=== PATIENT | female | born 1955 | race Caucasian/White ===

== ENCOUNTER 2017-09-10 12:38 | Inpatient (IN) | payer BC ==
[2017-09-10] VITALS (10 sets, daily range): BP systolic 119–204; BP diastolic 64–114
[~2017-09-10] VITALS: Ht 165.1 cm; Wt 99.0 kg
[2017-09-10 13:02] LABS: BASOPHIL (%) 0.8 % (0-1); BASOPHIL COUNT 0.1 K/uL (0-0.1); EOSINOPHIL (%) 0.8 % (0-5); EOSINOPHIL COUNT 0.1 K/uL (0-0.3); HEMATOCRIT 36.2 % (36.0-46.0); HEMOGLOBIN 12.3 G/DL (11.9-15.5); IMMATURE GRANULOCYTE (%) 1.1 % (0.0-0.7); LYMPHOCYTE (%) 16.1 % (15-42); LYMPHOCYTE COUNT 1.6 K/uL (1.0-2.8); MCH 31.9 PG (29.0-34.0); MCV 93.8 FL (83-99); MONOCYTE (%) 7.8 % (3-12); MONOCYTE COUNT 0.8 K/uL (0-0.8); NEUTROPHIL (%) 73.4 % (45-76); NEUTROPHIL COUNT 7.3 K/uL (1.8-6.4); PLATELET COUNT 225 K/uL (156-360); RBC DIS.WIDTH-CV 13.5 % (11.8-14.6); RBC DIS.WIDTH-SD 45.8 % (39-53); RED BLOOD COUNT 3.86 M/uL (3.80-5.20)
[2017-09-10 13:06] LABS: AMYLASE 50 IU/L (1-118); CHLORIDE 107 mEq/L (99-109); POTASSIUM 3.5 mEq/L (3.7-5.4); SODIUM 142 mEq/L (136-147)
[2017-09-10 13:08] LABS: GLUCOSE 118 mg/dL (70-99)
[2017-09-10 13:11] LABS: SERUM ETHYL ALCOHOL < 10 mg/dL
[2017-09-10 13:12] LABS: CREATININE 1.7 mg/dL (0.6-1.3)
[2017-09-10 13:13] LABS: UREA NITROGEN (BUN) 36 mg/dL (9-23)
[2017-09-10 13:15] LABS: LIPASE 27 U/L (1.0-51.0)
[2017-09-10 13:20] LABS: GFR ESTIMATE (CALCULATED) 33 mL/min/
[2017-09-10] MEDS ORDERED: NORVASC5 MG PO (14:53)
[2017-09-10] MEDS ORDERED: LO-DOSE ASPIRIN81 M1 PO (14:53)
[2017-09-10] MEDS ORDERED: HYZAAR 100-21 TABLET PO (14:53)
[2017-09-10] MEDS ORDERED: GLUCOPHAGE1000 MG PO (14:54)
[2017-09-10] MEDS ORDERED: LIPITOR20 MG PO (14:55)
[2017-09-10] MEDS ORDERED: FISH OIL 1,0001 EAC7 PO (14:56)
[2017-09-10] MEDS ORDERED: GINKGO BILOBA40 M1 PO (14:57)
[2017-09-10] MEDS ORDERED: MULTIVITAMIN1 EAC2 PO (14:58)
[2017-09-10] MEDS ORDERED: GLUCOSAMINE CH1 EAC2 PO (14:59)
[2017-09-10 15:33] LABS: APPEARANCE CLEAR ((CLEAR)); BILIRUBIN NEGATIVE; BLOOD NEGATIVE; COLOR STRAW ((YELLOW)); GLUCOSE (STRIP) NEGATIVE; KETONES NEGATIVE; LEUKOCYTES NEGATIVE; NITRITE NEGATIVE; PROTEIN (STRIP) NEGATIVE; SPECIFIC GRAVITY 1.029 (1.000-1.030); UCUL ADDED? NO; UROBILINOGEN 0.2 MG/DL (0.2-1.0)
[2017-09-10 15:42] LABS: AMPHETAMINE NEGATIVE (500 ng/mL); BARBITURATES NEGATIVE (200 ng/mL); BENZODIAZEPINES NEGATIVE (150 ng/mL); BUPRENORPHINE NEGATIVE (10 ng/mL); COCAINE NEGATIVE (150 ng/mL); METHADONE NEGATIVE (200 ng/mL); METHAMPHETAMINE NEGATIVE (500 ng/mL); OPIATES (MORPHINE) NEGATIVE (100 ng/mL); OXYCODONE NEGATIVE (100 ng/mL); PHENCYCLIDINE NEGATIVE (25 ng/mL); PROPOXYPHENE NEGATIVE (300 ng/mL); THC CANNABINOIDS NEGATIVE (50 ng/mL); TRICYCLIC ANTIDEPRESSANTS NEGATIVE (300 ng/mL)
[2017-09-11] VITALS (18 sets, daily range): BP systolic 117–156; BP diastolic 46–93
[2017-09-11 06:13] LABS: HEMATOCRIT 34.5 % (36.0-46.0); HEMOGLOBIN 11.2 G/DL (11.9-15.5); MCH 31.5 PG (29.0-34.0); MCHC 32.5 G/DL (30.0-36.0); MCV 96.9 FL (83-99); PLATELET COUNT 182 K/uL (156-360); RBC DIS.WIDTH-CV 13.6 % (11.8-14.6); RBC DIS.WIDTH-SD 48.8 % (39-53); RED BLOOD COUNT 3.56 M/uL (3.80-5.20); WHITE BLOOD COUNT 10.4 K/uL (4.1-10.2)
[2017-09-11 06:42] LABS: ALBUMIN 3.9 G/DL (3.2-4.8); ALKALINE PHOSPHATASE 99 IU/L (3-129); ALT (GPT) 80 IU/L (3-49); AST (GOT) 74 IU/L (2-34); CHLORIDE 104 MEQ/L (99-109); CREATININE 1.2 MG/DL (0.6-1.3); GFR ESTIMATE (CALCULATED) 49 mL/min/; GLUCOSE 144 mg/dL (70-99); POTASSIUM 3.6 MEQ/L (3.7-5.4); SODIUM 139 MEQ/L (136-147); TOTAL BILIRUBIN 1.3 MG/DL (0.0-1.0); TOTAL PROTEIN 5.8 G/DL (6.4-8.3); UREA NITROGEN (BUN) 26 mg/dL (9-23)
[2017-09-12] VITALS (14 sets, daily range): BP systolic 141–173; BP diastolic 82–103
[2017-09-12 07:59] LABS: BASOPHIL (%) 0.5 % (0-1); BASOPHIL COUNT 0.1 K/uL (0-0.1); EOSINOPHIL (%) 2.7 % (0-5); EOSINOPHIL COUNT 0.3 K/uL (0-0.3); HEMATOCRIT 33.1 % (36.0-46.0); HEMOGLOBIN 11.1 G/DL (11.9-15.5); IMMATURE GRANULOCYTE (%) 0.3 % (0.0-0.7); LYMPHOCYTE (%) 9.6 % (15-42); LYMPHOCYTE COUNT 1.1 K/uL (1.0-2.8); MCH 32.3 PG (29.0-34.0); MCHC 33.5 G/DL (30.0-36.0); MCV 96.2 FL (83-99); MONOCYTE (%) 9.2 % (3-12); NEUTROPHIL (%) 77.7 % (45-76); NEUTROPHIL COUNT 8.5 K/uL (1.8-6.4); PLATELET COUNT 170 K/uL (156-360); RBC DIS.WIDTH-CV 13.2 % (11.8-14.6); RBC DIS.WIDTH-SD 46.5 % (39-53); RED BLOOD COUNT 3.44 M/uL (3.80-5.20); WHITE BLOOD COUNT 10.9 K/uL (4.1-10.2)
[2017-09-12 08:22] LABS: CHLORIDE 100 MEQ/L (99-109); CREATININE 0.9 MG/DL (0.6-1.3); GFR ESTIMATE (CALCULATED) > 59 mL/min/; GLUCOSE 141 mg/dL (70-99); POTASSIUM 3.8 MEQ/L (3.7-5.4); SODIUM 136 MEQ/L (136-147); UREA NITROGEN (BUN) 17 mg/dL (9-23)
[2017-09-13 04:31] VITALS: BP 162/84
[2017-09-13 04:42] LABS: BASOPHIL (%) 0.7 % (0-1); BASOPHIL COUNT 0.1 K/uL (0-0.1); EOSINOPHIL (%) 4.1 % (0-5); EOSINOPHIL COUNT 0.4 K/uL (0-0.3); HEMATOCRIT 33.5 % (36.0-46.0); HEMOGLOBIN 11.4 G/DL (11.9-15.5); IMMATURE GRANULOCYTE (%) 0.5 % (0.0-0.7); LYMPHOCYTE (%) 12.7 % (15-42); LYMPHOCYTE COUNT 1.3 K/uL (1.0-2.8); MCH 32.1 PG (29.0-34.0); MCV 94.4 FL (83-99); MONOCYTE (%) 9.4 % (3-12); NEUTROPHIL (%) 72.6 % (45-76); NEUTROPHIL COUNT 7.6 K/uL (1.8-6.4); PLATELET COUNT 175 K/uL (156-360); RBC DIS.WIDTH-CV 12.8 % (11.8-14.6); RBC DIS.WIDTH-SD 44.5 % (39-53); RED BLOOD COUNT 3.55 M/uL (3.80-5.20); WHITE BLOOD COUNT 10.5 K/uL (4.1-10.2)
[2017-09-13 04:55] LABS: CHLORIDE 103 mEq/L (99-109); POTASSIUM 4.1 mEq/L (3.7-5.4); SODIUM 140 mEq/L (136-147)
[2017-09-13 04:56] LABS: GLUCOSE 119 mg/dL (70-99)
[2017-09-13 05:00] LABS: CREATININE 0.8 mg/dL (0.6-1.3); GFR ESTIMATE (CALCULATED) > 59 mL/min/
[2017-09-13 05:01] LABS: UREA NITROGEN (BUN) 15 mg/dL (9-23)
[2017-09-13 06:53] VITALS: BP 157/81
[2017-09-13 12:00] VITALS: BP 152/71
[2017-09-13 16:25] VITALS: BP 193/92
[2017-09-13 18:00] VITALS: BP 202/103
[2017-09-13 19:05] VITALS: BP 193/101
[2017-09-14] VITALS (7 sets, daily range): BP systolic 145–191; BP diastolic 82–96
[2017-09-15 04:10] VITALS: BP 175/83
[2017-09-15 09:19] VITALS: BP 143/85
[2017-09-15 12:52] VITALS: BP 153/88
[2017-09-15 16:29] VITALS: BP 141/80
[2017-09-15 18:29] LABS: TYPE OF FLUID PLEURAL
[2017-09-15 18:41] LABS: APPEARANCE CLOUDY-BLOODY; BODY FLUID RBC'S 640000 /MM^3 (0-100); BODY FLUID WBC'S 2000 /MM^3 (0-500)
[2017-09-15 18:53] LABS: BODY FLUID GLUCOSE 138 MG/DL; BODY FLUID LDH 225 IU/L
[2017-09-15 19:10] LABS: BODY FLUID EOSINOPHILS 2 % (0-25); MONONUCLEAR WBC'S 70 %; POLYNUCLEAR WBC'S 28 % (0-25)
[2017-09-15 20:18] LABS: LACTATE DEHYDROGENASE 178 IU/L (20-246); TOTAL PROTEIN 6.6 G/DL (6.4-8.3)
[2017-09-15 20:20] LABS: GLUCOSE 190 mg/dL (70-99)
[2017-09-15 21:08] VITALS: BP 158/88
[2017-09-16 00:02] VITALS: BP 168/84
[2017-09-16 05:39] VITALS: BP 148/87
[2017-09-16 07:37] VITALS: BP 144/85
[2017-09-16 12:04] VITALS: BP 125/77
[2017-09-16 16:28] VITALS: BP 145/80
[2017-09-16 20:47] VITALS: BP 143/65
[2017-09-17 01:09] VITALS: BP 140/87
[2017-09-17 05:22] VITALS: BP 148/86
[2017-09-17 06:55] VITALS: BP 154/82
[2017-09-17 11:49] VITALS: BP 131/72
[2017-09-17 15:41] VITALS: BP 134/80
[2017-09-17 20:22] VITALS: BP 150/78
[2017-09-18 00:15] VITALS: BP 144/80
[2017-09-18 05:00] VITALS: BP 134/85
[2017-09-18 09:00] VITALS: BP 137/73
[2017-09-18 10:19] LABS: BASOPHIL (%) 0.9 % (0-1); BASOPHIL COUNT 0.1 K/uL (0-0.1); EOSINOPHIL (%) 5.2 % (0-5); EOSINOPHIL COUNT 0.4 K/uL (0-0.3); HEMOGLOBIN 12.2 G/DL (11.9-15.5); IMMATURE GRANULOCYTE (%) 0.4 % (0.0-0.7); LYMPHOCYTE (%) 15.9 % (15-42); LYMPHOCYTE COUNT 1.2 K/uL (1.0-2.8); MCH 31.4 PG (29.0-34.0); MCV 95.4 FL (83-99); MONOCYTE (%) 9.8 % (3-12); MONOCYTE COUNT 0.7 K/uL (0-0.8); NEUTROPHIL (%) 67.8 % (45-76); NEUTROPHIL COUNT 5.1 K/uL (1.8-6.4); RBC DIS.WIDTH-CV 12.9 % (11.8-14.6); RBC DIS.WIDTH-SD 45.6 % (39-53); RED BLOOD COUNT 3.88 M/uL (3.80-5.20); WHITE BLOOD COUNT 7.6 K/uL (4.1-10.2)
[2017-09-18 10:37] LABS: PLATELET COUNT 293 K/uL (156-360)
[2017-09-18 11:02] LABS: CHLORIDE 99 MEQ/L (99-109); GFR ESTIMATE (CALCULATED) > 59 mL/min/; GLUCOSE 190 mg/dL (70-99); POTASSIUM 4.7 MEQ/L (3.7-5.4); SODIUM 136 MEQ/L (136-147)
[2017-09-18 11:04] LABS: UREA NITROGEN (BUN) 26 mg/dL (9-23)
[2017-09-18 15:27] VITALS: BP 136/81
[2017-09-18] MEDS ORDERED: OXYCONTIN15 MG PO (17:11)
[2017-09-18] MEDS ORDERED: COLACE100 MG PO (17:11)
[2017-09-18] MEDS ORDERED: ULTRAM50 MG PO (17:11)
[2017-09-18] MEDS ORDERED: AUGMENTIN875 MG PO (17:11)
[2017-09-18 19:17] VITALS: BP 145/78
== END 2017-09-18 19:25 | disposition home or self-care (01) | DRG 183 ==
LOC: TRA 12:38 → 4WEST 14:42 → EDOF 14:42 → ENRESERV 14:45 → 4WEST 16:00 → ENRESERV 09-12 18:18 → 4EAST 09-12 21:55 → ENRESERV 09-16 07:57 → CANRESERV 09-16 08:26 → 4EAST 09-18 19:25
PROVIDERS: Emergency Medicine; Internal Medicine Pulmonary Disease; Physician Assistant; Surgery
PROC: 0W9B3ZX Drainage of Left Pleural Cavity, Percutaneous Approach, Diagnostic (ICD-10-PCS; principal; 2017-09-15)
DX: S22.5XXA Flail chest, initial encounter for closed fracture (principal); S27.321A Contusion of lung, unilateral, initial encounter; J18.9 Pneumonia, unspecified organism; I71.2 Thoracic aortic aneurysm, without rupture; S27.2XXA Traumatic hemopneumothorax, initial encounter; J90 Pleural effusion, not elsewhere classified; J98.11 Atelectasis; K59.00 Constipation, unspecified; V80.010A Animal-rider injured by fall from or being thrown from horse in noncollision accident, initial encounter; Z79.84 Long term (current) use of oral hypoglycemic drugs; Y93.52 Activity, horseback riding; I10 Essential (primary) hypertension; E11.9 Type 2 diabetes mellitus without complications; E78.5 Hyperlipidemia, unspecified; Z90.49 Acquired absence of other specified parts of digestive tract; Z68.38 Body mass index [BMI] 38.0-38.9, adult; I25.10 Atherosclerotic heart disease of native coronary artery without angina pectoris; E66.9 Obesity, unspecified; E78.00 Pure hypercholesterolemia, unspecified; M19.90 Unspecified osteoarthritis, unspecified site; E04.1 Nontoxic single thyroid nodule
CPT/HCPCS: 71045; 71046; 71250; 71260; 72125; 72129; 72132; 74177; 76942; 80048; 80053; 81003; 82150; 82945; 82947; 82948; 83615; 83615 91; 83690; 84155; 84157; 85025; 85027; 86850; 86900; 86901; 87070; 87075; 87205; 87641; 89051; 94640; 94640 76; 94760; 94799; 99202; 99281; 99285; G0480; J1650; J1815; J1885; J2405; J3010; J7120